=== PATIENT | male | born 1980 | race Caucasian/White ===

== ENCOUNTER 2023-08-26 13:07 | Outpatient (AMB) | payer OTHER, SELFPAY ==
--- NOTE | 2023-08-26 13:19 | HO.SPINEOV ---
Intake Intake Visit Reasons: severe spinal stenosis Intake Note: Mr. Payton is here today for Low back pain Sales Order Specialist Required: No Assessment & Plan Assessment & Plan (1) Lumbar stenosis: Code(s): M48.061 - Spinal stenosis, lumbar region without neurogenic claudication (2) Cervical myelopathy: Code(s): G95.9 - Disease of spinal cord, unspecified (3) Lower extremity weakness: Code(s): R29.898 - Other symptoms and signs involving the musculoskeletal system Plan Dear Brent, Thank you for referring Mr Payton to our office today. He is a 43-year-old diabetic, A1c around 11, who has a complicated spinal history. He underwent a C3-C6 anterior cervical fusion about 8 months ago or so for what was described by him and his is acute spinal cord compression. He had been having numbness from his chest down to his legs with some trouble walking. He ended up in Dr. Barnes does office at [facility] and underwent emergency surgery. He did see some improvement in strength in his hands and some improvement of the numbness from his chest down to his umbilicus but that was about it. He had been having trouble leading up to the surgery not only with walking but pain and cramping in his legs. That never went away. He did have a previous MRI showing moderate to severe stenosis at L2-3. Apparently he went back to see Dr. Barnes but he only got 1 postoperative visit with him and he was sent out of the practice and discharged from the practice. He is coming in today because he is continuing to have a series of neurological problems that are still plaguing him. This includes diffuse pain in his low back, numbness from about his umbilicus down into his legs. A feeling like fire in his toes. He also reports weakness, erectile dysfunction, severe testicular pain with any type of exertion, leg weakness. At 1 point in during his recovery he had urinary retention but he tells me that is urinary situation seems to have stabilized. He is here to be evaluated for the L2-3 stenosis. He did undergo an injection at the L3-4 epidural space and did have 3-4 days of being able to stand up straight feel better with the pain in his back but he did not have any significant improvement in the other neurological symptoms. PMH: He is a very poorly-controlled diabetic with A1c 11. This is higher than the previous test which was around 9. History of congestive heart failure, hepatitis C, high cholesterol, hypertension, cocaine abuse. Previous surgeries include neck surgery as listed above. Social hx: He is smoking about a pack a day, he does not drink but he does smoke marijuana daily. Denies any illicit drugs. Medications: Patient reports he is on gabapentin, atorvastatin, amlodipine, Lasix, carvedilol, Jardiance, Humalog, Lantus, baby aspirin, Ventolin, diclofenac, carvedilol Allergies: Metformin and shellfish Physical exam: He is awake alert oriented, very anxious, he has full strength of his upper extremities with the exception of his right triceps which is about 4/5. Lower extremity he has iliopsoas weakness which is 2/5. Mild right quadriceps weakness 4+ out of 5. The rest of the lower extremity strength is normal. Diffusely hyperreflexic with Thom and clonus. Imaging review: I have a lumbar MRI done at [place] in January of 2023 showing moderate to severe stenosis at L2-3 Impression: 43-year-old poorly-controlled diabetic, presents with a host of complicated neurological issues including myelopathy secondary to cord compression with ongoing postoperative issues with spasticity and weakness, numbness as outlined above. He has never had a formal follow-up with Dr. Barnes other than a quick postoperative visit immediately after his surgery. Overlapping that he also has prior to the surgery cramping in his legs with walking. He currently can not walk that long that far but he still has some degree of this. His exam shows he is still hyperreflexic with weakness as outlined above. On top of all this he is a very poorly-controlled diabetic with an A1c of 11. In order to adequately assess this gentleman we need to 1st understand what the situation is in his cervical spine. If he has residual affects from the myelopathy the this could explain many of his symptoms. I would need to have a new MRI to see if there is cord signal change at the previous surgical site that would suggest this. In addition, he is showing some sensory changes at about the T10 level on exam so I would like to get a thoracic MRI to make sure there is nothing in the thoracic spine that might explain some of his symptoms as this was not evaluated at the initial time of his presentation. Lastly, since his lumbar MRI is now 8-month-old I would need to have an updated 1 to understand better if there has been any change there either. We will need to keep in mind that his diabetes could also be playing a factor in the pain, numbness and burning feelings he is getting in his legs as he has been poorly controlled diabetic for many years. This could be either peripheral neuropathy or diabetic polyneuropathy. We could do an EMG to establish this but I think we should just get the MRIs 1st and then reconvene in the office to review them. As it stands right now with his A1c at 11 he would not be a surgical candidate for lumbar surgery until this got down a little closer to the 7 range. Thank you for allowing us to care for your patient. The total time spent with this visit with this patient was 65 minutes reviewing history, physical exam, lumbar MRI imaging review, and implementation of treatment plan or further diagnostic testing Guillermo Mckeon MD,PhD [facility] Orders: Orders MR thoracic spine wo con Today R29.898 - Other symptoms and signs involving the musculoskeletal system MR cervical spine wo con Today G95.9 - Disease of spinal cord, unspecified MR lumbar spine wo con Today M48.061 - Spinal stenosis, lumbar region without neurogenic claudication Coding Level of Care Code New Pt Level 5 (09836) Diagnoses Lumbar stenosis M48.061 Cervical myelopathy G95.9 Lower extremity weakness R29.898
== END 2023-08-26 13:47 | disposition home or self-care (01) ==
PROVIDERS: PCP Internal Medicine; Referring Provider Physician Assistant; Visit Provider Physician Assistant
DX: M48.061 Spinal stenosis, lumbar region without neurogenic claudication (principal); G95.9 Disease of spinal cord, unspecified; R29.898 Other symptoms and signs involving the musculoskeletal system
CPT/HCPCS: 99205

== ENCOUNTER → 2023-08-26 13:07 | Outpatient (BNVA) | payer OTHER, SELFPAY | PROVIDERS: PCP Internal Medicine; Visit Provider Physician Assistant | DX: M48.061 Spinal stenosis, lumbar region without neurogenic claudication (principal); R29.898 Other symptoms and signs involving the musculoskeletal system; G95.9 Disease of spinal cord, unspecified | CPT/HCPCS: 99202 ==